=== PATIENT | male | born 1975 | race Caucasian/White ===

== ENCOUNTER 2018-02-08 08:58 | Inpatient (IN) | payer BC ==
[~2018-02-08] VITALS: Ht 180.3 cm; Wt 152.4 kg
--- NOTE | ~2018-02-08 | PR ---
[place], [place] PROGRESS NOTE NAME: ANDREA FARMER UNIT #: [id number] ROOM: 428 DOCTOR: AWNDA WEAVER DPM BIRTHDATE: [birth year] DOS: 02/10/2018 SUBJECTIVE: The patient was seen for followup of cellulitis, edema and venous ulcers of both lower legs. OBJECTIVE: Pedal pulses diminished, +2 pitting edema bilateral, venous ulcerations both lower extremities. No signs of abscess or fluctuance. No signs of purulent drainage or foul odor. Results of venous Dopplers negative for DVT, bilateral. Results of arterial Doppler bilateral revealed diffuse arteriosclerotic disease and/or inflow disease, probable significant stenosis of the distal right superficial femoral artery. ASSESSMENT: Venous ulcers, bilateral lower leg venous insufficiency, cellulitis; bilateral arterial insufficiency with stenosis. PLAN: Evaluation and management. Ordered Bactroban dressings and gauze to be applied to the wounds of both legs. No compression due to evidence of arterial disease. Consult with Dr. Cobos for vascular consultation and we will recheck the patient in 1-2 days. WANDA WEAVER DPM CM:MARIANNE [id number] WANDA WEAVER DPM 02/10/18 1542 interface
--- NOTE | ~2018-02-08 | CON ---
[place], [place] REPORT OF CONSULTATION NAME: ANDREA FARMER UNIT #: [id number] ROOM: 428 DOCTOR: XIOMARA DIAMOND DPM BIRTHDATE: [birth year] DOS: 02/09/2018 SUBJECTIVE: This patient is seen for evaluation of cellulitis, edema and venous leg ulcers on both lower extremities. He states he had an injury to his right foot recently. He had an x-ray done here in the hospital, which was negative. He states he has had problem with swelling off and on for quite some time. He denies being diabetic. PAST MEDICAL HISTORY: Positive for morbid obesity, essential hypertension, tobacco abuse, venous insufficiency. ALLERGIES: No known drug allergies. CURRENT MEDICATIONS: Include Cozaar, Lovenox, Celexa, Bumex, vancomycin, Zosyn, [place]. OBJECTIVE: Upon lower extremity physical examination, DP and PT pedal pulses are decreased. There is 1-2+ pitting edema in both lower extremities with negative Homans sign bilaterally. Sensation appears grossly intact and symmetrical bilaterally. There is dried what appears to be previous blisters noted at the distal medial portion of the lower legs as well as anterior portion of the lower leg. No active drainage is seen. Again, there is erythema and slight increased temperature. He has small blister on the dorsal surface of the right foot, which appears to be drying up. He has got some ecchymosis noted to the right first and second toes. There is no fluctuance or signs of abscess, evidence of chronic venous insufficiency, possible PAD clinically. X-ray was negative for fracture. ASSESSMENT: Chronic venous insufficiency, edema, cellulitis bilaterally. PLAN: Consult is performed. He is scheduled for a venous ultrasound today to rule out DVT. I am going to order an arterial ultrasound to rule out PAD, consider compression if arterial studies are within normal limits. Continue IV antibiotics. His legs are dry at this time with no active drainage, just leave open to air at this time and reevaluate tomorrow. Thank you for the opportunity to take part in the care of this patient. XIOMARA DIAMOND DPM CM:CONSTR:REPORT OF CONSULTATION 1140 02/10/18 0002 interface
--- NOTE | ~2018-02-08 | CON ---
[place], [place] REPORT OF CONSULTATION NAME: ANDREA FARMER UNIT #: [id number] ROOM: 428 [facility] [birth year] DOS: 02/10/2018 CARDIOLOGY CONSULTATION HISTORY OF PRESENT ILLNESS: Dr. Aden also reviewed the patient and has consulted for the vascular disease and arterial study shows significant disease, bone inlet and outlet disease, probable significant stenosis of the right superficial femoral. The patient has wounds on both sides, possible bilateral significant disease, may be considered both inlet and outlet disease and the patient is a pretty good candidate for underlying progressive disease with significant alcohol intake and also hypertension, not optimally controlled and still hypertensive and even after optimal medication running the pressures 158/108, 187/89, and 149/91. The patient also has sleep apnea with hypoxia ,is getting the BiPAP and Dr. Aden is also given the instructions for the dressing for both lower extremities. The patient also has extensive cellulitis with wound and purulent discharge up to the foot and ankle on the lower extremity below the knee on both sides. PHYSICAL EXAMINATION: GENERAL: The patient is alert. Denies any chest discomfort, no syncope, presyncope, and responding well. HEENT: Unremarkable. LUNGS: No rales. HEART: S1, S2 regular. No gallops. ABDOMEN: Soft, obese. NEUROLOGICAL: No focal neurological deficit noted. Pulses are diminished in both lower extremities and severe edema also noted. RECTAL AND GENITAL: Deferred, unrelated. LABORATORY DATA: Electrolytes unremarkable. Creatinine is normal at 0.96 and GFR is good. DIAGNOSES AND PLAN: Severe peripheral arterial disease with wounds and cellulitis. The patient is for aortobifemoral angiogram with distal runoff with possible intervention for revascularization. I explained the options, procedures, complications, morbidity mortality, and the risks. Opted for the angiogram and intervention. I will perform this tomorrow. I will be in communication with Dr. Aden. The patient is getting antibiotics for cellulitis and wound care by Dr. Aden and Dr. Evans also seen the patient for sleep apnea and hypoxia. The patient has echocardiogram done at [place], we are obtaining the results. [place], [place] REPORT OF CONSULTATION NAME: ANDREA FARMER UNIT #: [id number] ROOM: 428 DOCTOR: [facility] BIRTHDATE: [birth year] CAM AGUIAR MD CM:CONSTR:REPORT OF CONSULTATION 1719 02/11/18 0233 interface WANDA HENNING
--- NOTE | ~2018-02-08 | CON ---
[place], [place] REPORT OF CONSULTATION NAME: ANDREA FARMER UNIT #: [id number] ROOM: 428 DOCTOR: PEPITO ROLDAN MD,PARISA BIRTHDATE: [birth year] DOS: 02/11/2018 HISTORY OF PRESENT ILLNESS: The patient was asked for consultation, but not seen and discharge for this patient today home. PARISA BEYER MD CM:CONSTR:REPORT OF CONSULTATION 0945 02/11/18 1043 interface
[2018-02-08 09:01] VITALS: BP 120/79
[2018-02-08] MEDS ORDERED: LASIX40 MG PO (09:04)
[2018-02-08] MEDS ORDERED: KEFLEX500 M1 PO (09:04)
[2018-02-08] MEDS ORDERED: BLOOD PRESSURE MED (09:04)
[2018-02-08 09:23] LABS: BASO # 0.1 10*3/uL (0.0-0.1); BASO % 0.4 % (0.0-1.0); EOS # 0.6 10*3/uL (0.0-0.4); EOS % 5.6 % (1.0-4.0); HEMATOCRIT 54.3 % (42.0-52.0); HEMOGLOBIN 17.7 g/dl (14.0-18.0); LYMPH # 2.1 10*3/uL (1.3-4.4); LYMPH % 18.7 % (27.0-41.0); MEAN CELL VOLUME 98.9 fl (80.0-94.0); MEAN CORPUSCULAR HGB 32.2 pg (27.0-31.0); MEAN CORPUSCULAR HGB CONC 32.6 g/dl (33.0-37.0); MEAN PLATELET VOLUME 11.2 fl (9.6-12.3); MONO # 0.8 10*3/uL (0.1-1.0); MONO % 7.5 % (3.0-9.0); NEUT # 7.6 10*3/uL (2.3-7.9); NEUT % 67.4 % (47.0-73.0); PLATELET COUNT AUTOMATED 227 10*3/uL (130-400); RED BLOOD COUNT 5.49 10*6/uL (4.50-5.90); RED CELL DISTRI WIDTH 13.3 % (0-14.5); WHITE BLOOD COUNT 11.2 10*3/uL (4.8-10.8)
[2018-02-08 09:35] LABS: ACT PARTIAL THROMBO TIME 22.7 SECONDS (20.8-31.5); INTERNATIONAL NORM RATIO 0.9 (2.0-3.5)
[2018-02-08 09:40] LABS: ALBUMIN 3.4 gm/dl (3.1-4.5); ALKALINE PHOSPHATASE 115 U/L (45-117); BUN 19 mg/dl (7-24); CHLORIDE 101 mmol/L (98-107); CREATININE 0.83 mg/dL (0.70-1.30); POTASSIUM 4.1 mmol/L (3.5-5.1); SGOT/AST 25 IU/L (3-35); SGPT/ALT 39 U/L (12-78); SODIUM 138 mmol/L (136-145); TOTAL PROTEIN 7.4 gm/dL (6.4-8.2)
[2018-02-08 09:41] LABS: TROPONIN I < 0.015 ng/ml (<0.045)
[2018-02-08 10:10] LABS: BILIRUBIN NEGATIVE (NEGATIVE); BLOOD 1+ (NEGATIVE); CLARITY CLEAR (CLEAR); COLOR YELLOW (YELLOW); GLUCOSE NEGATIVE (NEGATIVE); KETONE NEGATIVE (NEGATIVE); LEUKO ESTERASE NEGATIVE (NEGATIVE); NITRITE NEGATIVE (NEGATIVE); PH 5.5 (5.0-9.0); SPECIFIC GRAVITY 1.015 (1.005-1.030); UROBILINOGEN 0.2 E.U./dl (0.2-1.0)
[2018-02-08 10:20] LABS: BACTERIA TRACE; EPITHELIAL CELLS 0-2; RBC 0-2 rbc/hpf (0-2)
[2018-02-08 10:30] VITALS: BP 152/80
[2018-02-08 10:40] VITALS: BP 152/80
[2018-02-08 16:00] VITALS: BP 157/87
[2018-02-08] MEDS ORDERED: CELEXA40 MG PO (19:38)
[2018-02-08] MEDS ORDERED: NORVASC10 MG PO (19:39)
[2018-02-08] MEDS ORDERED: DIOVAN80 M1 PO (19:39)
[2018-02-08 20:00] VITALS: BP 148/67
[2018-02-08] MEDS ORDERED: ASPIRIN ADULT L81 M1 PO (21:11)
[2018-02-09] VITALS: BP 140/67
[2018-02-09 03:00] VITALS: BP 156/79
[2018-02-09 07:00] LABS: BASO % 0.5 % (0.0-1.0); EOS # 0.6 10*3/uL (0.0-0.4); EOS % 6.7 % (1.0-4.0); HEMATOCRIT 57.3 % (42.0-52.0); HEMOGLOBIN 17.9 g/dl (14.0-18.0); LYMPH # 2.1 10*3/uL (1.3-4.4); LYMPH % 23.7 % (27.0-41.0); MEAN CELL VOLUME 100.5 fl (80.0-94.0); MEAN CORPUSCULAR HGB 31.4 pg (27.0-31.0); MEAN CORPUSCULAR HGB CONC 31.2 g/dl (33.0-37.0); MEAN PLATELET VOLUME 11.4 fl (9.6-12.3); MONO # 0.7 10*3/uL (0.1-1.0); MONO % 8.3 % (3.0-9.0); NEUT # 5.2 10*3/uL (2.3-7.9); NEUT % 60.6 % (47.0-73.0); PLATELET COUNT AUTOMATED 224 10*3/uL (130-400); RED CELL DISTRI WIDTH 13.5 % (0-14.5); WHITE BLOOD COUNT 8.6 10*3/uL (4.8-10.8)
[2018-02-09 07:13] LABS: ALBUMIN 3.5 gm/dl (3.1-4.5); ALKALINE PHOSPHATASE 117 U/L (45-117); BUN 13 mg/dl (7-24); CHLORIDE 98 mmol/L (98-107); CHOLESTEROL 136 mg/dL (<200); CREATININE 0.95 mg/dL (0.70-1.30); FREE T4 0.96 ng/dl (0.76-1.46); HDL CHOLESTEROL 39 mg/dl (40-60); LDL CHOLESTEROL 86 mg/dL (9-159); PHOSPHOROUS 4.3 mg/dL (2.5-4.9); POTASSIUM 4.2 mmol/L (3.5-5.1); SGOT/AST 18 IU/L (3-35); SGPT/ALT 37 U/L (12-78); SODIUM 140 mmol/L (136-145); TOTAL PROTEIN 7.9 gm/dL (6.4-8.2); TRIGLYCERIDES 56 mg/dl (<150); URIC ACID 6.6 mg/dL (3.5-7.2); VLDL CHOLESTEROL 11 mg/dL (6-40)
[2018-02-09 08:00] VITALS: BP 158/76
[2018-02-09 08:39] LABS: VITAMIN D, 25-HYDROXY 16.8 ng/mL (30-100)
[2018-02-09 16:00] VITALS: BP 152/79
[2018-02-09 20:00] VITALS: BP 137/59
[2018-02-10] VITALS (7 sets, daily range): BP systolic 140–187; BP diastolic 66–108
[2018-02-10 06:07] LABS: BUN 11 mg/dl (7-24); CHLORIDE 99 mmol/L (98-107); CREATININE 0.96 mg/dL (0.70-1.30); POTASSIUM 4.1 mmol/L (3.5-5.1); SODIUM 142 mmol/L (136-145)
[2018-02-10 15:17] LABS: ABG BASE EXCESS 6.2 mmol/L (-2.0-2.0); ABG HCO3 35.4 mmol/l (22-26); ABG O2 SATURATION 94.5 % (95-97); ARTERIAL BLOOD GAS PCO2 69.5 mmHg (35-45); ARTERIAL BLOOD GAS PH 7.325 (7.35-7.45); ARTERIAL BLOOD GAS PO2 74.5 mmHg (80-90)
[2018-02-10 16:36] LABS: ABG BASE EXCESS 7.8 mmol/L (-2.0-2.0); ABG HCO3 35.4 mmol/l (22-26); ARTERIAL BLOOD GAS PCO2 59.5 mmHg (35-45); ARTERIAL BLOOD GAS PH 7.39 (7.35-7.45); ARTERIAL BLOOD GAS PO2 62.6 mmHg (80-90)
[2018-02-11 03:57] VITALS: BP 178/98
[2018-02-11 04:00] VITALS: BP 203/110
[2018-02-11] MEDS ORDERED: VITAMIN D-32000 UNIT PO (04:38)
[2018-02-11] MEDS ORDERED: BUMEX2.5 MG/10 IV (04:38)
[2018-02-11] MEDS ORDERED: ZOSYN 3.373.375 GM/5 IV (04:38)
[2018-02-11] MEDS ORDERED: Bactroban Oint22 GM T (04:38)
[2018-02-11] MEDS ORDERED: VANCOMYCIN2 GM/5001 IV (04:38)
[2018-02-11 05:24] VITALS: BP 172/84
== END 2018-02-11 07:04 | disposition other institution (70) | DRG 300 ==
LOC: ED 08:58 → 4E 09:41 → EDHOLD 09:41 → 4E 09:50
PROVIDERS: Emergency Medicine; Internal Medicine; Internal Medicine Critical Care Medicine
DX: I70.203 Unspecified atherosclerosis of native arteries of extremities, bilateral legs (principal); L03.115 Cellulitis of right lower limb; E46 Unspecified protein-calorie malnutrition; E66.01 Morbid (severe) obesity due to excess calories; E83.51 Hypocalcemia; L03.116 Cellulitis of left lower limb; L97.929 Non-pressure chronic ulcer of unspecified part of left lower leg with unspecified severity; L97.919 Non-pressure chronic ulcer of unspecified part of right lower leg with unspecified severity; Z68.42 Body mass index [BMI] 45.0-49.9, adult; R09.02 Hypoxemia; I87.2 Venous insufficiency (chronic) (peripheral); F17.210 Nicotine dependence, cigarettes, uncomplicated; R31.29 Other microscopic hematuria; I10 Essential (primary) hypertension; Z79.899 Other long term (current) drug therapy; Z87.81 Personal history of (healed) traumatic fracture; Z79.82 Long term (current) use of aspirin; Z71.6 Tobacco abuse counseling